=== PATIENT | female | born 1995 | race Hispanic/Latino ===

== ENCOUNTER 2020-10-08 20:30 | Emergency (ER) | payer OTHER, SELFPAY ==
[2020-10-08] MEDS ORDERED: Ondansetron PF 4 MG/2 ML Vial ONE (22:31)
[2020-10-08] MEDS ORDERED: Ketorolac Tromethamine 30 MG/ML VIAL ONE (22:31)
[2020-10-08 22:58] LABS: #Eosinphils 0.1 10x3/uL (0.0-0.5); #Monocytes 0.8 10x3/uL (0.0-1.1); #Neutrophils 3.5 10x3/uL (1.5-8.4); %Basophils 0.5 % (0.0-2.0); %Eosinophils 1.4 % (0.0-6.0); %Lymphocytes 31.8 % (18.0-47.0); %Monocytes 11.7 % (0.0-10.0); %Neutrophils 54.4 % (40.0-75.0); Hemoglobin 13.2 g/dL (12.0-15.5); Mean Corpuscular HGB CONC 31.7 g/dL (32.0-36.0); Mean Corpuscular Volume 85.3 fl (81.6-98.3); Mean Platelet Volume 10.1 fl (7.4-10.4); Platelet Count 262 10x3/uL (150-450); RBC Distribution Width 12.2 % (11.5-14.5); Red Blood Cell (RBC) Count 4.89 10x6/uL (3.90-5.03); White Blood Cell (WBC) Count 6.4 10x3/uL (3.5-10.5)
[2020-10-08 23:07] LABS: Bilirubin Neg (Negative); Blood, Urine 150 (Negative); Glucose, Urine (Dipstick) Normal (Negative); Ketone, Urine Negative (Negative); Leukocyte Negative (Negative); Nitrite Negative (Negative); Protein, Urine (Dipstick) 30 mg/dl (Neg-Trace); Specific Gravity, Urine 1.015 (1.002-1.036); Urobilinogen Normal mg/dL (Less than 2)
[2020-10-08 23:09] LABS: Clarity Clear (Clear)
[2020-10-08 23:14] LABS: ALT (SGPT) 34 U/L (8-55); AST (SGOT) 22 U/L (5-34); Albumin 4.5 g/dL (3.5-5.0); Alkaline Phosphatase 82 U/L (40-110); Anion Gap 14 mmol/L (10-20); BUN (Urea Nitrogen) 10 mg/dL (7.0-18.7); Bilirubin, Total 0.3 mg/dL (0.2-1.2); Calc. Creatinine Clearance 0 mL/min (70-130); Calcium 9.5 mg/dL (7.8-10.44); Carbon Dioxide 23 mmol/L (22-29); Chloride 105 mmol/L (98-107); Globulin 3.7 g/dL (2.4-3.5); Glucose 90 mg/dL (70-105); Lipase 29 U/L (8-78); Potassium 3.5 mmol/L (3.5-5.1); Protein, Total 8.2 g/dL (6.0-8.3); Sodium 138 mmol/L (136-145)
[2020-10-08 23:18] LABS: BHCG - Serum Negative (NEGATIVE); Pregs Control Background? CLEAR/WHITE (CLR/WHITE); Pregs Control Bar Appear? YES (CONTROL BAR)
[2020-10-08 23:26] LABS: RBC/HPF 0-3 HPF (0-3)
[2020-10-08 23:27] LABS: Bacteria/HPF 3+ HPF (None Seen); Mucous/LPF 2+ LPF (<2+)
== END 2020-10-09 00:06 | disposition home or self-care (01) ==
LOC: CSHERS 20:30
DX: R10.11 Right upper quadrant pain (principal)
CPT/HCPCS: 76705; 80053; 81003; 81015; 83690; 84703; 85025; 96374; J1885; J2405

== ENCOUNTER 2022-12-18 02:25 | Inpatient (IN) | payer MEDICAID, OTHER, SELFPAY ==
[2022-12-18] MEDS ORDERED: hydrALAZINE 20 MG/ML VIAL SLOW IVP PRN ×2 (03:28→14:02)
[2022-12-18 03:49] LABS: Fetal Membranes Rupture No Membranes Rupture (No Rupture)
[2022-12-18] MEDS ORDERED: Misoprostol 200 MCG TAB PR PRN (05:57)
[2022-12-18] MEDS ORDERED: Tranexamic Acid 1,000 MG/10 ML VIAL IVP PRN (05:57)
[2022-12-18] MEDS ORDERED: Ondansetron PF 4 MG/2 ML Vial IVP PRN ×2 (05:57→14:02)
[2022-12-18] MEDS ORDERED: Carboprost 250 MCG/ML AMP IM PRN (05:57)
[2022-12-18] MEDS ORDERED: Promethazine HCl 25 MG/ML VIAL IM PRN ×2 (05:57→14:02)
[2022-12-18] MEDS ORDERED: Lidocaine 1% (PF) 30 ML VIAL SC PRN (05:57)
[2022-12-18] MEDS ORDERED: NS w/ Oxytocin 30 units 500 ML IV SCH ×3 (06:00)
[2022-12-18 07:56] VITALS: BMI 32.9
[2022-12-18 08:33] LABS: Hemoglobin 11.9 g/dL (12.0-15.5); Mean Corpuscular HGB CONC 32.4 g/dL (32.0-36.0); Mean Corpuscular Hemoglobin 26.2 pg (27.0-33.0); Mean Corpuscular Volume 80.7 fl (81.6-98.3); Mean Platelet Volume 11.9 fl (7.4-10.4); Platelet Count 199 10x3/uL (150-450); RBC Distribution Width 13.9 % (11.5-14.5); Red Blood Cell (RBC) Count 4.55 10x6/uL (3.90-5.03); White Blood Cell (WBC) Count 8.4 10x3/uL (3.5-10.5)
[2022-12-18] MEDS ORDERED: Acetaminophen 500 MG TAB PO PRN (09:00)
[2022-12-18 09:04] LABS: HBSAg Index 0.19 S/CO (0-0.99); Hep B Surf Ag - L&D Non-Reactive S/CO (NonReactive)
[2022-12-18 09:05] LABS: Syphilis Antibody Nonreactive (Nonreactive); Syphilis Antibody Index 0.04 S/CO (<1.00 Non-Reactive)
[2022-12-18] MEDS ORDERED: Bisacodyl 10 MG SUPP PR PRN (14:02)
[2022-12-18] MEDS ORDERED: Lanolin Ointment 7 GM TUBE TOP PRN (14:02)
[2022-12-18] MEDS ORDERED: Milk Of Magnesia 30 ML UDCUP PO PRN (14:02)
[2022-12-18] MEDS ORDERED: diphenhydrAMINE 25 MG CAP PO PRN (14:02)
[2022-12-18] MEDS ORDERED: Boostrix 0.5 ML (Tdap) VIAL (>/=7 yrs of age) IM ONE (14:02)
[2022-12-18] MEDS: HYDROcodone/Acetaminophen 5/325 mg Tablet PO PRN ×2 (14:09→19:47)
[2022-12-18] MEDS: Ibuprofen 800 MG TAB PO SCH ×2 (15:50→22:05)
[2022-12-18] MEDS: Ferrous Sulfate 325 MG TAB PO SCH (16:41)
[2022-12-18] MEDS: Docusate 100 MG CAP PO SCH (22:06)
[2022-12-19] MEDS: HYDROcodone/Acetaminophen 5/325 mg Tablet PO PRN ×2 (01:20→08:46)
[2022-12-19] MEDS: Ibuprofen 800 MG TAB PO SCH ×2 (05:18→14:22)
[2022-12-19] MEDS: Ferrous Sulfate 325 MG TAB PO SCH ×2 (08:13→18:02)
[2022-12-19] MEDS: Docusate 100 MG CAP PO SCH (08:46)
[2022-12-19] MEDS ORDERED: Prenatal Vitamin 1 TAB PO SCH (09:00)
[2022-12-19 16:38] VITALS: TEMP 98
[2022-12-19 17:59] VITALS: BP 112/70
== END 2022-12-19 19:48 | disposition home or self-care (01) | DRG 805 ==
LOC: CSHLD/OP 02:25 → CSHLD 06:30 → CSHPP 15:34
PROVIDERS: ADMIT Family Medicine; ATTEND Family Medicine
PROC: 10E0XZZ Delivery of Products of Conception, External Approach (ICD-10-PCS; principal; 2022-12-18)
PROC: 0HQ9XZZ Repair Perineum Skin, External Approach (ICD-10-PCS; 2022-12-18)
DX: O99.344 Other mental disorders complicating childbirth (principal); F32.A Depression, unspecified; O24.12 Pre-existing type 2 diabetes mellitus, in childbirth; Z37.0 Single live birth; E11.9 Type 2 diabetes mellitus without complications; O99.214 Obesity complicating childbirth; E66.9 Obesity, unspecified; Z88.1 Allergy status to other antibiotic agents; O70.0 First degree perineal laceration during delivery; Z3A.38 38 weeks gestation of pregnancy
CPT/HCPCS: 36415; 84112; 85027; 86780; 86850; 86900; 86901; 87340; 99285; J2590